=== PATIENT | male | born 1970 | race Caucasian/White ===

== ENCOUNTER → 2021-07-29 | Outpatient (CLI) | payer SELFPAY ==
--- NOTE | 2021-07-29 13:45 | LES_PTH ---
PATIENT: Ramana Victor LOC: [facility] U#:[id number] AGE/SX: 50/M ROOM: RE07/29/[address]: Dr. Bharathi Islas, : 1970 BED: DIS: 07/29/2021 SPEC #: [id number] RECD: 07/29/21 18:01 STATUS: XIOMARA EVONNE #: [id number] KELLY: 07/29/21 13:[address]: Bharathi Islas DEPT: SURGICAL PATHOLOGY RECD BY: Nikki Torrez ENTERED: 07/30/21 09:49 SP TYPE: Lesion OTHR DR: Dr. Jonathon Pfeiffer MD Tissues: Skin of upper extremity and shoulder Procedures: Surgery Specimen Level IV HEADER OPERATION: Excision skin lesion left shoulder PRE-OP DIAGNOSIS: Growing skin lesion, nodular, rule out basal cell, favor benign TISSUE SUBMITTED: Left shoulder MICROSCOPIC DIAGNOSIS Left shoulder skin lesion, excisional biopsy: Basal cell carcinoma, incompletely excised. See comment. SJ:jon 07/31/2021 COMMENT The tumor measures 0.5 cm in greatest dimension and present at the one peripheral margin and focally at the deep margin. Clinical correlation and appropriate follow up are necessary. Case has been reviewed in consultation with Dr. Cordero who concurs with the above diagnosis. IDC:AM MICROSCOPIC DESCRIPTION Slides are reviewed. GROSS DESCRIPTION Received is one container labeled with the patient's name and not further designated. The specimen consists of a piece of burleson-white skin measuring 1.1 x 0.7 x 0.2 cm. The specimen is inked, serially sectioned and submitted entirely in one cassette. / ASHLEY:jon 07/30/2021 TC:0 CPT: 38396
== END | disposition home or self-care (01) ==
PROVIDERS: PCP Family Medicine; Visit Provider Family Medicine
DX: L98.9 Disorder of the skin and subcutaneous tissue, unspecified (principal)
CPT/HCPCS: 88305